=== PATIENT | female | born 1955 | race Hispanic/Latino ===

== ENCOUNTER 2018-05-16 08:50 | Emergency (ER) | payer SELFPAY ==
[2018-05-16] MEDS ORDERED: predniSONE 20 MG TAB ONE (09:29)
[2018-05-16] MEDS ORDERED: Bupivacaine 0.5% 10 ML VIAL ONE (09:55)
[2018-05-16] MEDS ORDERED: Lidocaine 1% 20 ML MDV ONE (09:58)
[2018-05-16 10:06] LABS: Anion Gap 14 mmol/L (10-20); BUN (Urea Nitrogen) 6 mg/dL (9.8-20.1); Calc. Creatinine Clearance 0 mL/min (70-130); Calcium 9.5 mg/dL (7.8-10.44); Carbon Dioxide 21 mmol/L (23-31); Chloride 109 mmol/L (98-107); Estimated GFR-MDRD 86; Glucose 66 mg/dL (80-115); Potassium 3.6 mmol/L (3.5-5.1); Sodium 140 mmol/L (136-145); Uric Acid 3.1 mg/dL (2.6-6.0)
[2018-05-16] MEDS ORDERED: Sulfameth/Trimethoprim DS 800-160mg TAB ONE (10:50)
[2018-05-16] MEDS ORDERED: Amoxicillin/Potassium Clav 875 MG TAB ONE (10:51)
[2018-05-16] MEDS ORDERED: Adacel (T-DAP) 0.5 ML VIAL ONE (10:55)
--- NOTE | 2018-05-16 11:45 | RAD ---
RIGHT FINGER 2 VIEWS: Date: 05/16/18 HISTORY: Pain. COMPARISON: None. FINDINGS: No fracture. There is extensive soft tissue swelling of the dorsal aspect of the distal interphalange al joint index finger. There is severe distal interphalangeal joint and moderate proximal interphalangeal joint narrowing. IMPRESSION: Extensive swelling of the finger, as well as dorsal focal area of edema at the distal interphalangeal joint of the index finger. This could be sequelae of ligamentous injury versus infection. POS: [facility]
== END 2018-05-16 11:37 | disposition home or self-care (01) ==
LOC: NAV ERS 08:50
DX: L03.011 Cellulitis of right finger (principal); F17.210 Nicotine dependence, cigarettes, uncomplicated; Z86.73 Personal history of transient ischemic attack (TIA), and cerebral infarction without residual deficits
CPT/HCPCS: 10060; 80048; 84550; 90715; J2001; J3490; J7506

== ENCOUNTER 2018-05-19 12:29 | Emergency (ER) | payer SELFPAY ==
[2018-05-19] MEDS ORDERED: Lidocaine 1% 20 ML MDV ONE (12:52)
[2018-05-19] MEDS ORDERED: Bacitracin Zinc 1 Packet ONE (13:09)
== END 2018-05-19 13:27 | disposition home or self-care (01) ==
LOC: NAV ERS 12:29
DX: L02.511 Cutaneous abscess of right hand (principal); L03.011 Cellulitis of right finger; I10 Essential (primary) hypertension; Z86.73 Personal history of transient ischemic attack (TIA), and cerebral infarction without residual deficits; F17.210 Nicotine dependence, cigarettes, uncomplicated; Z79.899 Other long term (current) drug therapy
CPT/HCPCS: 26011; J2001

== ENCOUNTER 2019-10-06 09:29 | Emergency (ER) | payer OTHER, SELFPAY | END 2019-10-06 10:20 | disposition home or self-care (01) | LOC: NAV ERS 09:29 | DX: L08.9 Local infection of the skin and subcutaneous tissue, unspecified (principal); G43.909 Migraine, unspecified, not intractable, without status migrainosus; F17.210 Nicotine dependence, cigarettes, uncomplicated; Z86.73 Personal history of transient ischemic attack (TIA), and cerebral infarction without residual deficits | CPT/HCPCS: 99283 ==

== ENCOUNTER 2019-11-21 10:56 | Outpatient (CLI) | payer MEDICARE ==
--- NOTE | 2019-11-21 11:17 | RAD ---
EXAM: Single anterior view of the thoracic and lumbosacral spine (scoliosis series) HISTORY: Scoliosis COMPARISON: None FINDINGS: Anterior views of the thoracic and lumbar spine shows normal height and alignment of the ve rtebral bodies and intervertebral discs without fracture or subluxation. No significant scoliosis is seen. Moderate degenerative changes are seen throughout the thoracic spine and upper lumbar spine . IMPRESSION: Degenerative changes of the spine without acute osseous abnormality.
== END 2019-11-21 10:57 | disposition home or self-care (01) ==
LOC: NAV RAD 10:56
PROVIDERS: ATTEND Nurse Practitioner Family
DX: Z13.828 Encounter for screening for other musculoskeletal disorder (principal); M47.816 Spondylosis without myelopathy or radiculopathy, lumbar region; M47.814 Spondylosis without myelopathy or radiculopathy, thoracic region
CPT/HCPCS: 72081

== ENCOUNTER 2022-07-09 12:52 | Emergency (ER) | payer MEDICARE, MEDICAID ==
[2022-07-09 14:16] LABS: #Basophils 0.1 thou/uL (0.0-0.2); #Eosinphils 0.1 thou/uL (0.0-0.7); #Lymphocytes 2.2 thou/uL (1.20-3.40); #Monocytes 0.8 thou/uL (0.11-0.59); #Neutrophils 6.8 thou/uL (1.40-6.50); %Basophils 0.6 % (0.0-1.0); %Eosinophils 0.5 % (0.0-10.0); %Lymphocytes 21.7 % (21.0-51.0); %Monocytes 8.5 % (0.0-10.0); %Neutrophils 68.7 % (42.0-75.0); Hemoglobin 13.2 g/dL (12.0-16.0); Mean Corpuscular HGB CONC 30.1 g/dL (32.0-36.0); Mean Corpuscular Hemoglobin 26.2 pg (27.0-31.0); Mean Corpuscular Volume 86.9 fL (78.0-98.0); Mean Platelet Volume 6.6 fL (7.4-10.4); Platelet Count 263 thou/uL (130-400); RBC Distribution Width 12.9 % (11.5-14.5); Red Blood Cell (RBC) Count 5.05 mill/uL (4.20-5.40)
[2022-07-09] MEDS ORDERED: Sodium Chloride 0.9% 100 ML ONE (14:22)
[2022-07-09] MEDS ORDERED: Piperacillin/Tazobactam 4.5 GM VIAL ONE (14:22)
[2022-07-09] MEDS ORDERED: Vancomycin HCl 500 MG VIAL ONE (14:29)
[2022-07-09] MEDS ORDERED: Sodium Chloride 0.9% 500 ML ONE (14:30)
[2022-07-09 14:35] LABS: ALT (SGPT) 16 U/L (8-55); AST (SGOT) 11 U/L (5-34); Albumin 4.4 g/dL (3.4-4.8); Alkaline Phosphatase 74 U/L (40-110); Anion Gap 16 mmol/L (10-20); BUN (Urea Nitrogen) 17 mg/dL (9.8-20.1); Bilirubin, Total 0.6 mg/dL (0.2-1.2); Calc. Creatinine Clearance 0 mL/min (70-130); Calcium 9.7 mg/dL (7.8-10.44); Carbon Dioxide 25 mmol/L (23-31); Chloride 103 mmol/L (98-107); Estimated GFR 84; Globulin 3.3 g/dL (2.4-3.5); Glucose 85 mg/dL (80-115); Potassium 3.7 mmol/L (3.5-5.1); Protein, Total 7.7 g/dL (5.8-8.1); Sodium 140 mmol/L (136-145)
[2022-07-09] MEDS ORDERED: Boostrix 0.5 ML (Tdap) VIAL (>/=7 yrs of age) ONE (14:51)
[2022-07-09 15:45] LABS: SARS-CoV-2 NAA Rapid Test Not Detected (NotDetected)
[2022-07-09] MEDS ORDERED: Acetylcysteine (ACETADOTE) 20% 200 MG/ML (30 ML VIAL) ONE (16:07)
[2022-07-09] MEDS ORDERED: HYDROcodone/Acetaminophen 5/325 mg Tablet ONE (16:07)
== END 2022-07-09 18:14 | disposition short-term general hospital (02) ==
LOC: NAV ERS 12:52
DX: L03.115 Cellulitis of right lower limb (principal); F17.210 Nicotine dependence, cigarettes, uncomplicated; Z20.822 Contact with and (suspected) exposure to COVID-19
CPT/HCPCS: 80053; 83605; 85025; 87040; 90471; 90715; 96365; 96367; J0132; J2543; J3370; J3490; J7030; U0002

== ENCOUNTER 2024-06-23 13:55 | Emergency (ER) | payer MEDICARE | END 2024-06-23 15:52 | disposition home or self-care (01) | LOC: NAV ERS 13:55 | DX: S81.811A Laceration without foreign body, right lower leg, initial encounter (principal); G43.909 Migraine, unspecified, not intractable, without status migrainosus; R56.9 Unspecified convulsions; I10 Essential (primary) hypertension; F17.210 Nicotine dependence, cigarettes, uncomplicated; X58.XXXA Exposure to other specified factors, initial encounter; Z86.73 Personal history of transient ischemic attack (TIA), and cerebral infarction without residual deficits | CPT/HCPCS: 99282 ==